=== PATIENT | female | born 1995 | race Caucasian/White ===

== ENCOUNTER 2017-07-25 12:03 | Emergency (ER) | payer BC ==
[2017-07-25 12:38] VITALS: BP 111/67
--- NOTE | 2017-07-25 12:57 | UC ---
Throat Pain/Nasal Gabe HPI - HPI Summary HPI Summary: 22 year old female with sinus pressure for about 7 days. cc "i have a sinus infection..." c/o headache, sinus pressure, and congestion x 1 week. has hoarse voice. no fever. mild cough. [ End ] - History of Current Complaint Chief Complaint: UCRespiratory Stated Complaint: SINUS Time Seen by Provider: 07/25/17 12:55 Hx Obtained From: Patient Hx Last Menstrual Period: 07/10/17 Onset/Duration: Gradual Onset Severity: Moderate Cough: Productive - Allergies/Home Medications Allergies/Adverse Reactions: Allergies Allergy/AdvReac Type Severity Reaction Status Date / Time No Known Allergies Allergy Verified 07/25/17 12:38 PMH/Surg Hx/FS Hx/Imm Hx Previously Healthy: Yes - Surgical History Surgical History: Yes Surgery Procedure, Year, and Place: ankle 2012 - Family History Known Family History: Positive: None - Social History Occupation: Employed Full-time Lives: With Family Alcohol Use: Weekly Substance Use Type: None Smoking Status (MU): Never Smoked Tobacco - Immunization History Most Recent Influenza Vaccination: no 2016 Review of Systems ENT: Nasal Discharge, Sinus Congestion, Sinus Pain/Tenderness Respiratory: Cough Is Patient Immunocompromised?: No All Other Systems Reviewed And Are Negative: Yes Physical Exam Triage Information Reviewed: Yes Appearance: Well-Appearing, No Pain Distress, Well-Nourished Vital Signs: Initial Vital Signs Temp 97.9 F 07/25/17 12:34 Pulse 59 07/25/17 12:34 Resp 14 07/25/17 12:34 BP 111/67 07/25/17 12:34 Pulse Ox 99 07/25/17 12:34 Vital Signs Reviewed: Yes Eye Exam: Normal ENT Exam: Normal ENT: Positive: Other: - frontal sinus tenderness b/l Dental Exam: Normal Neck exam: Normal Neck: Positive: 1 Respiratory Exam: Normal Cardiovascular Exam: Normal Musculoskeletal Exam: Normal Neurological Exam: Normal Psychological Exam: Normal Skin Exam: Normal Throat Pain/Nasal Course/Dx - Course Assessment/Plan: For viral sinusitis you are advised to use claritin and flonase in the AM and in the PM the netti pot and benadryl. If your symptoms persist for 3 or more days and worsen please at that time start antibiotics. If you need antibiotics please stat probiotics as well. - Differential Dx/Diagnosis Differential Diagnosis/HQI/PQRI: Pharyngitis, Sinusitis, Tonsillitis, URI Provider Diagnoses: Viral sinusitis Discharge - Discharge Plan Condition: Good Disposition: HOME Prescriptions: Amoxicillin/Clavulanate TAB* [Augmentin TAB 875*] 875 mg PO BID #20 tab Patient Education Materials: Sinusitis (ED) Additional Instructions: For viral sinusitis you are advised to use claritin and flonase in the AM and in the PM the netti pot and benadryl. If your symptoms persist for 3 or more days and worsen please at that time start antibiotics. If you need antibiotics please stat probiotics as well.
== END 2017-07-25 13:11 | disposition home or self-care (01) ==
LOC: UCCORT 12:03
DX: J06.9 Acute upper respiratory infection, unspecified (principal); J32.9 Chronic sinusitis, unspecified; J03.90 Acute tonsillitis, unspecified; J02.9 Acute pharyngitis, unspecified
CPT/HCPCS: 99202; G0463